=== PATIENT | female | born 1970 | race African-American/Black ===

== ENCOUNTER 2016-08-28 16:24 | Emergency (ER) | payer MEDICAID ==
[~2016-08-28] VITALS: Ht 152.4 cm; Wt 63.9 kg
[~2016-08-28 16:24] MED LIST: ATEN100T; CARI350T; DIAZ10TA; HYDR-4005
[2016-08-28] MEDS ORDERED: SODIUM CHLORIDE 0.9% 1,000 ML IV ONE (17:38)
[2016-08-28] MEDS ORDERED: ONDANSETRON HCL 4MG/2ML VIAL IV STA (17:38)
[2016-08-28 17:48] LABS: CLARITY URINE TURBID (CLEAR); COLOR URINE DARK YELLOW (YELLOW); GLUCOSE URINE TRACE (NEGATIVE); KETONES URINE 1+ (NEGATIVE); LEUKOCYTE ESTERASE URINE 3+ (NEGATIVE); NITRITE URINE POSITIVE (NEGATIVE); OCCULT BLOOD URINE 3+ (NEGATIVE); PH URINE 5.5 (4.5-8.0); PROTEIN URINE 2+ (NEGATIVE); SPECIFIC GRAVITY URINE 1.027 (1.005-1.030)
[2016-08-28 18:23] LABS: BACTERIA URINE 4+; SQUAMOUS EPITHELIAL CELL URINE FEW /lpf (RARE/1+); TRICHOMONAS URINE 2+; WBC URINE 15-25 /hpf (0-2)
[2016-08-28 19:18] VITALS: BP 136/86
== END 2016-08-28 19:21 | disposition home or self-care (01) ==
LOC: ER 16:24
DX: K21.9 Gastro-esophageal reflux disease without esophagitis (principal); F17.200 Nicotine dependence, unspecified, uncomplicated; I10 Essential (primary) hypertension; Z88.0 Allergy status to penicillin; Z98.890 Other specified postprocedural states
CPT/HCPCS: 81001; 81025; 96361; 96374; 99284; J2405; J7030; Z7610

== ENCOUNTER 2017-03-01 17:13 | Emergency (ER) | payer MEDICAID ==
[~2017-03-01] VITALS: Ht 152.4 cm; Wt 62.0 kg
[2017-03-01] MEDS ORDERED: OMEP20TA2 PO (17:54)
[2017-03-01] MEDS ORDERED: ONDA4TAB5 PO (17:54)
[2017-03-01] MEDS ORDERED: FAMO20TA8 PO (17:54)
[2017-03-01 20:25] VITALS: BP 112/79
[2017-03-01 22:13] LABS: CLARITY URINE CLOUDY (CLEAR); COLOR URINE DARK YELLOW (YELLOW); GLUCOSE URINE NEGATIVE (NEGATIVE); KETONES URINE 1+ (NEGATIVE); LEUKOCYTE ESTERASE URINE 2+ (NEGATIVE); NITRITE URINE POSITIVE (NEGATIVE); OCCULT BLOOD URINE NEGATIVE (NEGATIVE); PROTEIN URINE 1+ (NEGATIVE); SPECIFIC GRAVITY URINE 1.029 (1.005-1.030)
[2017-03-01] MEDS ORDERED: DICYCLOMINE 10 MG/5 ML ORAL SYR PO STA (22:52)
[2017-03-01] MEDS ORDERED: MAGNESIUM/ALUMINUM HYDROXIDE/SIMETHICONE 30ML UDC PO STA (22:52)
[2017-03-01] MEDS ORDERED: VISCOUS LIDOCAINE 2% 15 ML UDC PO STA (22:52)
[2017-03-01 23:29] LABS: BASOPHILS % 0.6 % (0.0-2.0); EOSINOPHILS % 0.6 % (0.0-5.0); HEMATOCRIT. 46.5 % (36.0-48.0); HEMOGLOBIN. 15.2 g/dL (12.0-16.0); LYMPHOCYTES % 26.7 % (20.0-50.0); MEAN CORPUSCULAR HEMOGLOBIN 25.9 pg (28.0-32.0); MEAN CORPUSCULAR VOLUME 79.2 fL (81.0-99.0); MEAN PLATELET VOLUME 8.6 fl (7.4-10.4); MONOCYTES % 7.9 % (2.0-8.0); NEUTROPHILS % 64.2 % (40.0-76.0); PLATELET 274 x1000/uL (130-400); RED BLOOD CELL COUNT 5.86 mill/uL (4.2-5.4); RED CELL DISTRIBUTION WIDTH 18.2 % (11.6-14.6)
[2017-03-01 23:34] LABS: CHLORIDE 98 mEq/L (98-107)
[2017-03-01 23:43] LABS: CARBON DIOXIDE 29 mEq/L (21-32)
== END 2017-03-02 00:08 | disposition home or self-care (01) ==
LOC: ER 18:18
DX: N39.0 Urinary tract infection, site not specified (principal); R11.2 Nausea with vomiting, unspecified; R53.1 Weakness; I10 Essential (primary) hypertension; F17.210 Nicotine dependence, cigarettes, uncomplicated; Z88.0 Allergy status to penicillin
CPT/HCPCS: 36415; 80053; 81001; 81025; 85025; 99284